=== PATIENT | female | born 1990 | race Caucasian/White ===

== ENCOUNTER 2018-11-18 21:27 | Inpatient (IN) | payer OTHER ==
[2018-11-18 21:39] VITALS: BMI 29.8
--- NOTE | 2018-11-18 21:51 | PDOC ---
History of Present Illness <Simi Calhoun - Last Filed: 11/19/18 00:40> - General History Source: Patient - History of Present Illness Initial Comments: 11/18/18 21:43 28 year old c/o left thigh swelling, redness and pain x 3 days. denies SOB, chest pain. denies trauma / injury. denies recent travel, control PMHX: DVT s/p lovenox at age 15, 11/18/18 21:57 11/19/18 00:00 <Jagruti Williamson - Last Filed: 11/19/18 01:25> - General Chief Complaint: Edema Stated Complaint: LEG PAIN Time Seen by Provider: 11/18/18 21:38 Past History <Simi Calhoun - Last Filed: 11/19/18 00:40> - Suicide/Smoking/Psychosocial Hx Smoking History: Never smoked Hx Alcohol Use: No Drug/Substance Use Hx: Yes (marijuana) <Jagruti Williamson - Last Filed: 11/19/18 01:25> - Past Medical History Allergies/Adverse Reactions: Allergies Allergy/AdvReac Type Severity Reaction Status Date / Time No Known Allergies Allergy Verified 11/19/18 00:11 Home Medications: Ambulatory Orders NK [No Known Home Medication] 11/19/18 Review of Systems - Review of Systems Able to Perform ROS?: Yes Is the patient limited Mauritian proficient: No Constitutional: No: Symptoms Reported, See HPI, Chills, Diaphoresis, Fever, Loss of Appetite, Malaise, Night Sweats, Weakness, Weight Stable, Unintentional Wgt. Loss, Unexplained wgt Loss, Other Respiratory: No: Symptoms reported, See HPI, Cough, Orthopnea, Shortness of Breath, SOB with Exertion, SOB at Rest, Stridor, Wheezing, Productive cough, Hemoptysis, Other Cardiac (ROS): No: Symptoms Reported, See HPI, Chest Pain, Edema, Irregular Heart Rate, Lightheadedness, Palpitations, Syncope, Chest Tightness, Other ABD/GI: No: Symptoms Reported, See HPI, Abdominal Distended, Abd. Pain w/ defecation, Blood Streaked Bowels, Constipated, Diarrhea, Difficulty Swallowing , Nausea, Poor Appetite, Poor Fluid Intake, Rectal Bleeding, Vomiting, Indigestion, Abdominal cramping, Tarry Stools, Other Integumentary: Yes: Erythema <Jagruti Willaimson - Last Filed: 11/19/18 01:25> *Physical Exam - Vital Signs Last Vital Signs Temp Pulse Resp BP Pulse Ox 98.6 F 72 19 101/69 98 11/18/18 21:36 11/18/18 23:47 11/18/18 21:36 11/18/18 23:47 11/18/18 23:47 <Simi Calhoun - Last Filed: 11/19/18 00:40> - Vital Signs Last Vital Signs Temp Pulse Resp BP Pulse Ox 98.6 F 68 19 110/62 99 11/18/18 21:36 11/18/18 21:36 11/18/18 21:36 11/18/18 21:36 11/18/18 21:36 - Physical Exam General Appearance: Yes: Appropriately Dressed Respiratory/Chest: positive: Lungs Clear Cardiovascular: positive: Regular Rhythm, Regular Rate Gastrointestinal/Abdominal: positive: Normal Bowel Sounds, Soft. negative: Tender Extremity: positive: Normal Capillary Refill, Normal Inspection, Normal Range of Motion Integumentary: positive: Other (+ pedal pulse b/l + erythema to left upper thigh. warm to touch. ) Neurologic: positive: Fully Oriented, Alert, Normal Mood/Affect <Jagruti Williamson - Last Filed: 11/19/18 01:25> ED Treatment Course - LABORATORY CBC & Chemistry Diagram: 11/18/18 22:40 11/18/18 22:40 - ADDITIONAL ORDERS Additional order review: Laboratory Results 11/19/18 11/18/18 11/18/18 11:55 22:40 22:40 PT with INR 13.40 H INR 1.13 H PTT (Actin FS) 36.2 Sodium 141 Potassium 3.7 Chloride 106 Carbon Dioxide 28 Anion Gap 7 L BUN 7.8 Creatinine 0.7 Est GFR (CKD-EPI)AfAm 137.62 Est GFR (CKD-EPI)NonAf 118.74 Random Glucose 100 Calcium 9.0 Total Bilirubin 1.2 H AST 14 L ALT 17 Alkaline Phosphatase 95 Troponin I Cancelled Total Protein 7.6 Albumin 3.8 Urine Color Urine Appearance Urine pH Ur Specific [place] Urine Protein Urine Glucose (UA) Urine Ketones Urine Blood Urine Nitrite Urine Bilirubin Urine Urobilinogen Ur Leukocyte Esterase Urine WBC (Auto) Urine RBC (Auto) Urine Casts (Auto) U Epithel Cells (Auto) Urine Bacteria (Auto) Urine HCG, Qual 11/18/18 11/18/18 22:20 22:20 PT with INR INR PTT (Actin FS) Sodium Potassium Chloride Carbon Dioxide Anion Gap BUN Creatinine Est GFR (CKD-EPI)AfAm Est GFR (CKD-EPI)NonAf Random Glucose Calcium Total Bilirubin AST ALT Alkaline Phosphatase Troponin I Total Protein Albumin Urine Color Yellow Urine Appearance Clear Urine pH 5.5 Ur Specific [place] 1.008 L Urine Protein Negative Urine Glucose (UA) Negative Urine Ketones 1+ H Urine Blood Negative Urine Nitrite Negative Urine Bilirubin Negative Urine Urobilinogen 1.0 Ur Leukocyte Esterase Trace Urine WBC (Auto) 8 Urine RBC (Auto) 2 Urine Casts (Auto) 3 U Epithel Cells (Auto) 6.5 Urine Bacteria (Auto) 163.3 Urine HCG, Qual Negative 11/18/18 22:40 RBC 4.79 MCV 86.4 MCHC 33.3 RDW 12.9 MPV 9.8 Neutrophils % 69.1 Lymphocytes % 21.7 Monocytes % 7.1 Eosinophils % 1.1 Basophils % 1.0 <Simi Calhoun - Last Filed: 11/19/18 00:40> - LABORATORY CBC & Chemistry Diagram: 11/18/18 22:40 11/18/18 22:40 <Jagruti Williamson - Last Filed: 11/19/18 01:25> Progress Note - Progress Note Progress Note: A left femorval vein DVT p: US labs EKG admit <Jagruti Williamson - Last Filed: 11/19/18 01:25> Medical Decision Making - Medical Decision Making 11/19/18 01:25 patient to be admitted under Dr. ellison service. patient signed out to Elida Crandall NP <Jagruti Williamson - Last Filed: 11/19/18 01:25> *DC/Admit/Observation/Transfer - Discharge Dispostion Decision to Admit order: Yes <Simi Calhoun - Last Filed: 11/19/18 00:40> - Discharge Dispostion Decision to Admit order: Yes <Jagruti Williamson - Last Filed: 11/19/18 01:25> Diagnosis at time of Disposition: Left femoral vein DVT Qualifiers: Chronicity: acute Qualified Code(s): I82.412 - Acute embolism and thrombosis of left femoral vein - Discharge Dispostion Condition at time of disposition: Guarded
[2018-11-18 23:05] LABS: EPI CELLS 6.5 /HPF (0-5/HPF); HYALINE CASTS 3 /lpf (0-8); PH,URINE 5.5 (5.0-8.0); URINE APPEARANCE CLEAR; URINE BACTERIA 163.3 /hpf (NEGATIVE); URINE BILIRUBIN NEGATIVE (NEGATIVE); URINE COLOR YELLOW; URINE GLUCOSE (UA) NEGATIVE (NEGATIVE); URINE KETONE 1+ (NEGATIVE); URINE LEUK ESTERASE TRACE (NEGATIVE); URINE NITRITE NEGATIVE (NEGATIVE); URINE PROTEIN NEGATIVE (NEGATIVE); URINE RBC 2 /hpf (0-4); URINE WBC 8 /hpf (0-5)
[2018-11-18 23:44] LABS: EOS % 1.1 % (0-4.5); HEMATOCRIT 41.4 % (32.4-45.2); HEMOGLOBIN 13.8 GM/dL (10.7-15.3); LYMPH % 21.7 % (8-40); MCH 28.8 pg (25.7-33.7); MCHC 33.3 g/dl (32.0-36.0); MEAN CELL VOLUME 86.4 fl (80-96); MEAN PLT VOLUME 9.8 fl (7.5-11.1); MONO % 7.1 % (3.8-10.2); NEUT % 69.1 % (42.8-82.8); PLATELET COUNT 242 K/MM3 (134-434); RBC 4.79 M/mm3 (3.60-5.2); RDW 12.9 % (11.6-15.6); WHITE BLOOD COUNT 11.1 K/mm3 (4.0-10.0)
[2018-11-18 23:57] LABS: INR 1.13 (0.83-1.09); PROTHROMBIN TIME (PATIENT) 13.4 SEC (9.7-13.0)
[2018-11-18 23:59] LABS: ACTIVATED PTT 36.2 SECONDS (25.2-36.5)
[2018-11-19] MEDS ORDERED: ENOXAPARIN NA (PORCINE) 80 MG/0.8 ML DISP.SYRIN SQ ONE (00:02)
[2018-11-19 00:17] LABS: ALBUMIN 3.8 g/dl (3.4-5.0); ALK PHOS 95 U/L (45-117); ANION GAP 7 MMOL/L (8-16); BILIRUBIN,TOTAL 1.2 mg/dL (0.2-1); BLOOD UREA NITROGEN 7.8 mg/dL (7-18); CHLORIDE 106 mmol/L (98-107); CO2 28 mmol/L (21-32); CREATININE 0.7 mg/dL (0.55-1.3); GLUCOSE,RANDOM 100 mg/dL (74-106); POTASSIUM 3.7 mmol/L (3.5-5.1); SGOT/AST 14 U/L (15-37); SGPT/ALT 17 U/L (13-61); SODIUM 141 mmol/L (136-145); TOT PROT 7.6 g/dl (6.4-8.2)
--- NOTE | 2018-11-19 00:38 | PN ---
Teaching Attending Note Name of Resident: Alex Calabrese ATTENDING PHYSICIAN STATEMENT I saw and evaluated the patient. I reviewed the resident's note and discussed the case with the resident. I agree with the resident's findings and plan as documented. SUBJECTIVE: OBJECTIVE: HEENT: No Jaundice, eye redness or discharge, PERRLA, EOMI. Normocephalic, atraumatic. External ears are normal and hearing is grossly intact. No nasal discharge. Neck: Supple, nontender. No palpable adenopathy or thyromegaly. No JVD Chest: Good effort. Clear to auscultation and percussion. Heart: Regular. No S3, rub or murmur Abdomen: Not distended, soft, nontender and no HSM. No rebound or guarding. Normal bowel sounds. Ext: Peripheral pulses intact. No leg edema. Skin: Warm and dry. No petechiae, rash or ecchymosis. Neuro: Alert. Oriented x3. CN 2-12 grossly intact. Sensation grossly intact in all four extremities and DTR are symmetric. Psych: Appropriate mood and affect. Good insight. Hypoalbuminemia - Possibly due to combined effects of malnutrition and inflammation associated with comorbid chronic conditions. Will ensure adequate dietary protein intake and also consult body wirer. DM For now, we will hold the home diabetes drugs and implement sliding scale insulin regimen. Provide comprehensive diabetes care with patient teaching and counseling about the importance of adherence to prescribed diabetes regimen, euglycemia, eye care and foot care. Tobacco Use Counseled on risks associated with tobacco use. We will provide patient all the necessary assistance to facilitate smoking cessation and prescribe Nicotine patch. Will consult nephrology and avoid nephrotoxic agents such as NSAIDS, aminoglycosides, contrast dyes and certain Alternative medicine products. Anemia -Do basic anemia work up including serial stool guaiacs, reticulocyte count and iron studies. Would benefit from Procrit therapy once iron replete. Obesity Counseled on the risks associated with obesity. Will provide patient all the necessary assistance, counseling and positive reinforcement to facilitate weight loss. Consult body wirer. Alcohol abuse - Implement [facility] alcohol withdrawal protocol and do neurochecks. Implement seizure, fall and aspiration precautions. Treat with thiamine and folic acid and monitor electrolytes (Ca,Mg,K,P). Counseled patient about abstaining from alcohol. Will consult cash reconciliation specialist and refer to alcohol detox upon discharge. Hypertension - Restart suitable outpatient antihypertensive drugs when clinically appropriate. Revise regimen to ensure [id number] excellent BP control and travel counselor patient on the injurious effects of uncontrolled hypertension. Nonpharmacologic measures to control hypertension like weight loss , salt restriction and exercise discussed. Importance of adherence to treatment regimen and attainment of normotension emphasized. DVT prophylaxis - Lovenox 40 mg SQ q 24 hours. Heparin 5000u sq tid. Advance directives - Full code ASSESSMENT AND PLAN:
--- NOTE | 2018-11-19 01:15 | HP ---
Admitting History and Physical - Primary Care Physician PCP: Facundo Worrell - Admission Chief Complaint: Left Leg Pain History of Present Illness: This is a 28 y/o woman with a PMHx of DVT L- Leg age 15. Who presents to the ED with left groin pain, redness and swelling which radiates to left leg x 3 days. Patient reports she first noted pain to her groin which increased to her left thigh. Patient denies recent travel or taking Control Pills. Patient denies fever, chills, headache, dizziness, SOB, CP, palpitations, AP, N/V/D, constipation, melena, dysuria. History Source: Patient Limitations to Obtaining History: No Limitations - Past Medical History Cardiovascular: Yes: Deep Vein Thrombosis ...LMP: 11/09/18 ...: No Dermatology: Yes: Eczema - Past Surgical History Past Surgical History: Yes: None - Smoking History Smoking history: Never smoked - Alcohol/Substance Use Hx Alcohol Use: No History of Substance Use: reports: Marijuana (Hookah) - Social History Usual Living Arrangement: Yes: With Significant Other ADL: Independent History of Recent Travel: No Home Medications - Allergies Allergies/Adverse Reactions: Allergies Allergy/AdvReac Type Severity Reaction Status Date / Time No Known Allergies Allergy Verified 11/19/18 00:11 - Home Medications Home Medications: Ambulatory Orders NK [No Known Home Medication] 11/19/18 Family Disease History - Family Disease History Family Disease History: Heart Disease: Father (DVTs), Other: Mother (Anemia), Brother (Alive and Healthy) Review of Systems - Review of Systems Constitutional: reports: No Symptoms Eyes: reports: No Symptoms HENT: reports: No Symptoms Neck: reports: No Symptoms Cardiovascular: reports: No Symptoms Respiratory: reports: No Symptoms Gastrointestinal: reports: No Symptoms Genitourinary: reports: No Symptoms Breasts: reports: No Symptoms Reported Musculoskeletal: reports: Extremity Pain, Joint Swelling Integumentary: reports: Eczema, Erythema Neurological: reports: No Symptoms Endocrine: reports: No Symptoms Hematology/Lymphatic: reports: No Symptoms Psychiatric: reports: No Symptoms Pain Intensity: 2 Physical Examination Vital Signs: Vital Signs Temperature 98.6 F 11/18/18 21:36 Pulse Rate 72 11/18/18 23:47 Respiratory Rate 11/18/18 21:36 Blood Pressure 101/69 11/18/18 23:47 O2 Sat by Pulse Oximetry (%) 98 11/18/18 23:47 Constitutional: Yes: Well Nourished, No Distress, Calm Eyes: Yes: WNL, Conjunctiva Clear, EOM Intact HENT: Yes: WNL, Atraumatic, Normocephalic Neck: Yes: WNL, Supple, Trachea Midline Cardiovascular: Yes: WNL, Regular Rate and Rhythm, S1, S2 Respiratory: Yes: WNL, Regular, CTA Bilaterally Gastrointestinal: Yes: WNL, Normal Bowel Sounds, Soft ...Rectal Exam: Yes: WNL Renal/: Yes: WNL Breast(s): Yes: WNL Musculoskeletal: Yes: WNL Extremities: Yes: Erythema (left medial thigh) Edema: No Peripheral Pulses WNL: Yes Integumentary: Yes: Erythema Neurological: Yes: WNL, Alert, Oriented, Cran Nerves II-XII Intact ...Motor Strength: WNL Psychiatric: Yes: WNL, Alert, Oriented Labs: CBC, BMP 11/18/18 22:40 11/18/18 22:40 Laboratory Results - last 24 hr 11/18/18 11/18/18 11/18/18 22:20 22:20 22:40 WBC RBC Hgb Hct MCV MCH MCHC RDW Plt Count MPV Absolute Neuts (auto) Neutrophils % Lymphocytes % Monocytes % Eosinophils % Basophils % Nucleated RBC % PT with INR 13.40 H INR 1.13 H PTT (Actin FS) 36.2 Sodium Potassium Chloride Carbon Dioxide Anion Gap BUN Creatinine Est GFR (CKD-EPI)AfAm Est GFR (CKD-EPI)NonAf Random Glucose Calcium Total Bilirubin AST ALT Alkaline Phosphatase Troponin I Total Protein Albumin Urine Color Yellow Urine Appearance Clear Urine pH 5.5 Ur Specific [place] 1.008 L Urine Protein Negative Urine Glucose (UA) Negative Urine Ketones 1+ H Urine Blood Negative Urine Nitrite Negative Urine Bilirubin Negative Urine Urobilinogen 1.0 Ur Leukocyte Esterase Trace Urine WBC (Auto) 8 Urine RBC (Auto) 2 Urine Casts (Auto) 3 U Epithel Cells (Auto) 6.5 Urine Bacteria (Auto) 163.3 Urine HCG, Qual Negative 11/18/18 11/18/18 11/19/18 22:40 22:40 11:55 WBC 11.1 H RBC 4.79 Hgb 13.8 Hct 41.4 MCV 86.4 MCH 28.8 MCHC 33.3 RDW 12.9 Plt Count 242 MPV 9.8 Absolute Neuts (auto) 7.7 Neutrophils % 69.1 Lymphocytes % 21.7 Monocytes % 7.1 Eosinophils % 1.1 Basophils % 1.0 Nucleated RBC % 0 PT with INR INR PTT (Actin FS) Sodium 141 Potassium 3.7 Chloride 106 Carbon Dioxide 28 Anion Gap 7 L BUN 7.8 Creatinine 0.7 Est GFR (CKD-EPI)AfAm 137.62 Est GFR (CKD-EPI)NonAf 118.74 Random Glucose 100 Calcium 9.0 Total Bilirubin 1.2 H AST 14 L ALT 17 Alkaline Phosphatase 95 Troponin I < 0.02 Cancelled Total Protein 7.6 Albumin 3.8 Urine Color Urine Appearance Urine pH Ur Specific [place] Urine Protein Urine Glucose (UA) Urine Ketones Urine Blood Urine Nitrite Urine Bilirubin Urine Urobilinogen Ur Leukocyte Esterase Urine WBC (Auto) Urine RBC (Auto) Urine Casts (Auto) U Epithel Cells (Auto) Urine Bacteria (Auto) Urine HCG, Qual Intake & Output 11/16/18 11/17/18 11/18/18 11/19/18 23:59 23:59 23:59 23:59 Weight 83.915 kg 77.383 kg Current Medications Generic Name Dose Route Start Last Admin Trade Name Freq PRN Reason Stop Dose Admin Acetaminophen 650 mg 11/19/18 02:04 Tylenol - PO Q6H PRN PAIN OR FEVER Enoxaparin Sodium 80 mg 11/19/18 12:00 Lovenox - SQ Q12H MARITZA Imaging - Results Chest X-ray: Image Reviewed Ultrasound: Report Reviewed, Image Reviewed Problem List - Problems (1) Left femoral vein DVT Assessment/Plan: US- +DVT common femoral vein, greater saphenous vein Lovenox started in ED, will continue BID Appreciate Hematology consult Appreciate Social Work consult- assistance with medication Monitor CBC, BMP, INR Monitor vitals Neurovascular checks Code(s): I82.412 - ACUTE EMBOLISM AND THROMBOSIS OF LEFT FEMORAL VEIN Qualifiers: Chronicity: acute Qualified Code(s): I82.412 - Acute embolism and thrombosis of left femoral vein Assessment/Plan This is a 28 y/o woman with a PMHx of DVT L- Leg age 15. Admitted for DVT of L- Leg for further evaluation of their emergent condition. Plan: See Problem List FEN PO Fluids as tolerated Replete lytes prn Regular Diet DVT ppx OOB Lovenox SQ Code Status: Full Code Dispo: Requires Inpatient Care Visit type - Emergency Visit Emergency Visit: Yes ED Registration Date: 11/18/18 Care time: The patient presented to the Emergency Department on the above date and was hospitalized for further evaluation of their emergent condition. - New Patient This patient is new to me today: Yes Date on this admission: 11/19/18 - Critical Care Critical Care patient: No
[2018-11-19] MEDS ORDERED: ACETAMINOPHEN 325 MG TABLET (FP) PO PRN (02:04)
[2018-11-19 07:53] LABS: BASO % 0.8 % (0-2.0); EOS % 2.4 % (0-4.5); HEMATOCRIT 38.4 % (32.4-45.2); HEMOGLOBIN 13.2 GM/dL (10.7-15.3); MCH 29.4 pg (25.7-33.7); MCHC 34.3 g/dl (32.0-36.0); MEAN CELL VOLUME 85.7 fl (80-96); MEAN PLT VOLUME 10.1 fl (7.5-11.1); MONO % 8.9 % (3.8-10.2); NEUT % 53.9 % (42.8-82.8); PLATELET COUNT 226 K/MM3 (134-434); RBC 4.48 M/mm3 (3.60-5.2); RDW 12.8 % (11.6-15.6); WHITE BLOOD COUNT 9.1 K/mm3 (4.0-10.0)
[2018-11-19 08:02] LABS: CALCIUM 8.6 mg/dL (8.5-10.1); CREATININE 0.7 mg/dL (0.55-1.3); POTASSIUM 3.7 mmol/L (3.5-5.1)
--- NOTE | 2018-11-19 11:05 | PN ---
Progress Note, Physician Chief Complaint: AWAKE ALERT NAD EVENTS REVIEWED - Current Medication List Current Medications: Active Medications Acetaminophen (Tylenol -) 650 mg PO Q6H PRN PRN Reason: PAIN OR FEVER Enoxaparin Sodium (Lovenox -) 80 mg SQ Q12H MARITZA - Objective Vital Signs: Vital Signs Temperature 98.0 F 11/19/18 06:00 Pulse Rate 73 11/19/18 06:00 Respiratory Rate 18 11/19/18 06:00 Blood Pressure 111/69 11/19/18 06:00 O2 Sat by Pulse Oximetry (%) 97 11/19/18 02:53 Constitutional: Yes: No Distress Cardiovascular: Yes: Regular Rate and Rhythm Respiratory: Yes: WNL Genitourinary: Yes: WNL Musculoskeletal: Yes: WNL Peripheral Pulses WNL: Yes Integumentary: Yes: Erythema (LEFT LEG), Rash Neurological: Yes: WNL ...Motor Strength: LLE Psychiatric: Yes: Other Labs: CBC, BMP 11/19/18 07:15 11/19/18 07:15 INR, PTT INR 1.13 (0.83-1.09) H 11/18/18 22:40 Problem List - Problems (1) Left femoral vein DVT Code(s): I82.412 - ACUTE EMBOLISM AND THROMBOSIS OF LEFT FEMORAL VEIN Qualifiers: Chronicity: acute Qualified Code(s): I82.412 - Acute embolism and thrombosis of left femoral vein Assessment/Plan HEME W/UP LOVENOX BID CHANGE TO ELIQUIS SMOKING CESSATION NO ORAL CONTRACEPTIVES D/W PATIENT AND HER DAD
[2018-11-19] MEDS ORDERED: ENOXAPARIN NA (PORCINE) 80 MG/0.8 ML DISP.SYRIN SQ SCH (12:00)
--- NOTE | 2018-11-19 18:46 | CONSULT ---
Consult Consult Specialty:: Hematology and Medical Oncology Reason for Consultation:: Left Femoral DVT - History of Present Illness Chief Complaint: Left Leg Swelling and Pain History of Present Illness: 28 y/o lady admitted for left groin pain, redness and swelling for 3 days. Denied control pills use. Notably, has a past medical history of Left leg DVT. - History Source History Provided By: Patient Limitations to Obtaining History: No Limitations - Past Medical History Cardio/Vascular: Yes: Deep Vein Thrombosis ...LMP: 11/09/18 ...: No Dermatology: Yes: Eczema - Past Surgical History Past Surgical History: Yes: None - Alcohol/Substance Use Hx Alcohol Use: No History of Substance Use: reports: Marijuana (Hookah) - Smoking History Smoking history: Never smoked - Social History ADL: Independent History of Recent Travel: No Home Medications - Allergies Allergies/Adverse Reactions: Allergies Allergy/AdvReac Type Severity Reaction Status Date / Time No Known Allergies Allergy Verified 11/19/18 00:11 - Home Medications Home Medications: Ambulatory Orders NK [No Known Home Medication] 11/19/18 Family Disease History - Family Disease History Family Disease History: Heart Disease: Father (DVTs), Other: Mother (Anemia), Brother (Alive and Healthy) Review of Systems - Review of Systems Constitutional: reports: No Symptoms Eyes: reports: No Symptoms HENT: reports: No Symptoms Neck: reports: No Symptoms Cardiovascular: reports: No Symptoms Respiratory: reports: No Symptoms Gastrointestinal: reports: No Symptoms Genitourinary: reports: No Symptoms Breasts: reports: No Symptoms Reported Musculoskeletal: reports: No Symptoms, Extremity Pain Integumentary: reports: No Symptoms, Eczema, Erythema Hematology/Lymphatic: reports: Other Psychiatric: reports: No Symptoms Physical Exam Vital Signs: Vital Signs Temperature 98.7 F 11/19/18 14:08 Pulse Rate 81 11/19/18 14:08 Respiratory Rate 18 11/19/18 14:08 Blood Pressure 113/88 11/19/18 14:08 O2 Sat by Pulse Oximetry (%) 99 11/19/18 09:00 Constitutional: Yes: Well Nourished Eyes: Yes: WNL HENT: Yes: WNL Neck: Yes: WNL Cardiovascular: Yes: WNL Respiratory: Yes: WNL Gastrointestinal: Yes: WNL Renal/: Yes: WNL Extremities: Yes: Erythema, Other (Left Inguinal Fullness, midline small induration) Integumentary: Yes: Body Piercing, Bruising, Erythema Labs: CBC, BMP 11/19/18 07:15 11/19/18 07:15 Assessment/Plan 28 y/o lady presenting with Left Inguinal/Femoral pain, swelling and erythema. She mentions that notices bruising in the same leg when she stands up for a while. Notably, she has been diagnosed with Left leg DVT at age 15. Plan: 1) Left Extremity DVT (Proximal DVT): Will need to rule out May-Thurner syndrome (compression of iliocaval venous system by the arterial system). Please obtain CT venogram or MR venography of the Ilocaval system and Left Lower extremity. Discuss with Radiology which study they recommend in this patient. CT abdomen and Pelvis. 2) R/O Coagulopathy. Given acute thrombus tests will not be accurate (except genetic testing). Recommend to follow-up with Dr. Rao or Dr. Thomas upon discharge for outpatient evaluation. 3) Anticoagulation. 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 If direct anticoagulant therapy preferred recommend Apixaban (Eliquis) 10 mg po BID for 7 days and 5 mg po BID prison until outpatient evaluation. 4) Thank you very much for this consultation
[2018-11-19] MEDS: APIXABAN 5 MG TABLET PO SCH (21:02)
[2018-11-19] MEDS ORDERED: APIXABAN 5 MG TABLET PO SCH (22:00)
[2018-11-20] MEDS: APIXABAN 5 MG TABLET PO SCH ×2 (09:45→22:49)
--- NOTE | 2018-11-20 11:33 | PN ---
Progress Note, Physician Chief Complaint: ASLEEP, DENIES CP OR SOB NO FEVERS - Current Medication List Current Medications: Active Medications Acetaminophen (Tylenol -) 650 mg PO Q6H PRN PRN Reason: PAIN OR FEVER Apixaban (Eliquis -) 10 mg PO BID MARITZA Stop: 11/26/18 10:01 Last Admin: 11/20/18 09:45 Dose: 10 mg - Objective Vital Signs: Vital Signs Temperature 98.2 F 11/20/18 06:15 Pulse Rate 70 11/20/18 06:15 Respiratory Rate 18 11/20/18 06:15 Blood Pressure 92/48 L 11/20/18 06:15 O2 Sat by Pulse Oximetry (%) 99 11/19/18 21:00 Constitutional: Yes: No Distress Cardiovascular: Yes: Regular Rate and Rhythm Respiratory: Yes: WNL Gastrointestinal: Yes: WNL Genitourinary: Yes: WNL Musculoskeletal: Yes: WNL Extremities: Yes: Other (LEFT LEG EDEMA/SWELLING UPPER GROIN, ERYTHEMA) Integumentary: Yes: Erythema Wound/Incision: Yes: Clean/Dry Neurological: Yes: WNL ...Motor Strength: WNL Psychiatric: Yes: WNL Labs: CBC, BMP 11/19/18 07:15 11/19/18 07:15 INR, PTT INR 1.13 (0.83-1.09) H 11/18/18 22:40 Problem List - Problems (1) Left femoral vein DVT Code(s): I82.412 - ACUTE EMBOLISM AND THROMBOSIS OF LEFT FEMORAL VEIN Qualifiers: Chronicity: acute Qualified Code(s): I82.412 - Acute embolism and thrombosis of left femoral vein Assessment/Plan CT ABDOMEN/PELVIS VENOGRAM LEFT ILIAC VEIN R/O VEIN COLLAPSE R/O NEOPLASM ABD/PELVIS ELIQUIS BID SMOKING CESSATION
--- NOTE | 2018-11-20 11:37 | EKG ---
Test Reason : Blood Pressure : / mmHG Vent. Rate : 064 BPM Atrial Rate : 064 BPM P-R Int : 160 ms QRS Dur : 094 ms QT Int : 416 ms P-R-T Axes : 049 017 023 degrees QTc Int : 429 ms SINUS RHYTHM WITH MARKED SINUS ARRHYTHMIA OTHERWISE NORMAL ECG NO PREVIOUS ECGS AVAILABLE Confirmed by NEFTALY MCCARTHY, SHERLYN ([id number]) on 11/20/2018 11:37:00 AM Referred By: Confirmed By:SHERLYN HIGGINBOTHAM MD
[2018-11-21] MEDS: APIXABAN 5 MG TABLET PO SCH ×2 (09:44→21:55)
--- NOTE | 2018-11-21 10:56 | PN ---
Progress Note, Physician Chief Complaint: DVT History of Present Illness: Previous notes and events reviewed awake and alert NAD pain to left groin described as sore, sts its getting better - Current Medication List Current Medications: Active Medications Acetaminophen (Tylenol -) 650 mg PO Q6H PRN PRN Reason: PAIN OR FEVER Apixaban (Eliquis -) 10 mg PO BID [facility] Stop: 11/26/18 10:01 Last Admin: 11/21/18 09:44 Dose: 10 mg - Objective Vital Signs: Vital Signs Temperature 98.5 F 11/21/18 09:47 Pulse Rate 73 11/21/18 09:47 Respiratory Rate 18 11/21/18 09:47 Blood Pressure 102/59 L 11/21/18 09:47 O2 Sat by Pulse Oximetry (%) 100 11/20/18 21:00 Constitutional: Yes: No Distress, Calm Eyes: Yes: Conjunctiva Clear HENT: Yes: Atraumatic Cardiovascular: Yes: Regular Rate and Rhythm Respiratory: Yes: Regular, CTA Bilaterally Gastrointestinal: Yes: Normal Bowel Sounds, Soft Breast(s): Yes: WNL Musculoskeletal: Yes: WNL Extremities: Yes: WNL Edema: Yes (left groin) Neurological: Yes: Alert, Oriented Psychiatric: Yes: Alert, Oriented Labs: CBC, BMP 11/19/18 07:15 11/19/18 07:15 INR, PTT INR 1.13 (0.83-1.09) H 11/18/18 22:40 - ....Imaging Cat Scan: Report Reviewed Problem List - Problems (1) Abnormal CT scan Assessment/Plan: -Abdomen CT scan shows small gallstones vs calcifications with mild wall thickening, nondistention of the distal descending and sigmoid colon, cannot rule out wall thickening -GI consult Code(s): R93.89 - ABNORMAL FINDINGS ON DX IMAGING OF OTH BODY STRUCTURES (2) Left femoral vein DVT Assessment/Plan: -Hematology and Vascular consult -LLE Vascular US shows left leg DVT, specifically thrombus noted within common femoral vein and also within greater saphenous vein -Abd/Pelvic CT scan shows mild stranding in the left groin around the left common femoral vein, slightly hyperdense tortuous tiny superficial vessel noted in lower anterior pelvis wall left more than right -pending LLE venogram -Eliquis 10mg BID for 7 days (14 doses) then will decrease to 5mg BID until outpatient follow up with heme Code(s): I82.412 - ACUTE EMBOLISM AND THROMBOSIS OF LEFT FEMORAL VEIN Qualifiers: Chronicity: acute Qualified Code(s): I82.412 - Acute embolism and thrombosis of left femoral vein Assessment/Plan see problem list
--- NOTE | 2018-11-21 11:10 | CONSULT ---
- Consultation VASCULAR SURGERY CONSULT Patient seen and evaluated with Dr. Hayes Santos. Called to eval 28 yo female with LLE DVT (CFV & Saphenous). She has a positive h /o DVT in same extremity when she was 15 years old. Currently resting comfortably in position of comfort. Denies n/v/f/c, CP, SOB, FREEDMAN or hemoptysis. Denies any trauma. Only smokes marijuana (denies cigarettes) . Denies taking control. Last Vital Signs Temp Pulse Resp BP Pulse Ox 98.5 F 73 18 102/59 L 100 11/21/18 09:47 11/21/18 09:47 11/21/18 09:47 11/21/18 09:47 11/20/18 21:00 CBC, BMP 11/19/18 07:15 11/19/18 07:15 INR, PTT INR 1.13 (0.83-1.09) H 11/18/18 22:[address] Acuña's plan 1) LLE DVT (Proximal DVT): Will need to rule out May-Thurner syndrome ( compression of iliocaval venous system by the arterial system). --> Recommend MRV (Ilocaval system and Left Lower extremity). 2) R/O Coagulopathy. Given acute thrombus tests will not be accurate (except genetic testing). Recommend to follow-up with Dr. Rao or Dr. Thomas upon DC for out-patient eval 3) AC: Given that this her second unprovoked event of DVT, she is a candidate for nursing home AC (or as per outpatient consultation). 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 Above discussed with my attending and agrees. On behalf of Dr. Santos, thank you for the opportunity to participate in your patient's care. Problem List - Problems (1) Left femoral vein DVT Code(s): I82.412 - ACUTE EMBOLISM AND THROMBOSIS OF LEFT FEMORAL VEIN Qualifiers: Chronicity: acute Qualified Code(s): I82.412 - Acute embolism and thrombosis of left femoral vein Visit type - Case Type Case Type: ED Admission - Emergency Emergency Visit: Yes ED Registration Date: 11/19/18 Care time: The patient presented to the Emergency Department on the above date and was hospitalized for further evaluation of their emergent condition. - New patient This patient is new to me today: Yes Date on this admission: 11/21/18
--- NOTE | 2018-11-21 20:14 | CON.GI ---
Consult Consult Specialty:: Gastroenterology Referred by:: Elina Hensley NP Reason for Consultation:: GB calcifications - History of Present Illness Chief Complaint: Painful bumps in my left groin History of Present Illness: 28F presents with painful peanut sized masses in the left inguinal regions. She is found to have a left common femoral and greater saphenous vein thromboses on Duplex scan. CT scan reveals some GB calfications and GB and sigmoid wall thickening. Kiley has had episodes of epigastric pain radiating to the right scapula after eating hot wings. These also cause heartburn and acid reflux. The pain is associated with nausea and sometimes vomiting. She gets intermittent transient diarrhea. No constipation, melena or overt bleeding.. Her appetite is great and her weight is steady. She did have LLE DVT at age 15 that was attributed to a long car rides while moving up from [place]. No other thromboses since then. She had a 2 hour car rides to and from [place] 2 weeks ago. No trauma. No BCP usage. Her father also had a DVT but it was related to LLE trauma. No FH of gallbladder disease. She did pass a right kidney stone about a year ago. She has never been . She has never had any endoscopies. - History Source History Provided By: Patient Limitations to Obtaining History: No Limitations - Past Medical History Cardio/Vascular: Yes: Deep Vein Thrombosis Gastrointestinal: Yes: GERD Renal/: Yes: Renal Calculi ...LMP: 11/09/18 ...: No Dermatology: Yes: Eczema - Past Surgical History Past Surgical History: Yes: None - Alcohol/Substance Use Hx Alcohol Use: No History of Substance Use: reports: Marijuana (Hookah) - Smoking History Smoking history: Never smoked - Social History Usual Living Arrangement: With Significant Other (girlfriend) ADL: Independent Occupation: cook at [employer] Place of : [facility] History of Recent Travel: No Home Medications - Allergies Allergies/Adverse Reactions: Allergies Allergy/AdvReac Type Severity Reaction Status Date / Time No Known Allergies Allergy Verified 11/19/18 00:11 - Home Medications Home Medications: Ambulatory Orders NK [No Known Home Medication] 11/19/18 Family Disease History - Family Disease History Family Disease History: Heart Disease: Father (DVTs), Other: Mother (Anemia), Brother (Alive and Healthy) Review of Systems - Review of Systems Constitutional: reports: No Symptoms Eyes: reports: No Symptoms HENT: reports: No Symptoms Neck: reports: No Symptoms Cardiovascular: reports: No Symptoms Respiratory: reports: No Symptoms Gastrointestinal: reports: No Symptoms Genitourinary: reports: No Symptoms Musculoskeletal: reports: Extremity Pain (left inguinal area pain) Neurological: reports: No Symptoms Endocrine: reports: No Symptoms Hematology/Lymphatic: reports: No Symptoms Physical Exam-GI Vital Signs: Vital Signs Temperature 98.3 F 11/21/18 17:10 Pulse Rate 62 11/21/18 17:10 Respiratory Rate 20 11/21/18 17:10 Blood Pressure 122/62 11/21/18 17:10 O2 Sat by Pulse Oximetry (%) 100 11/21/18 09:00 CBC,CMP WBC 9.1 K/mm3 (4.0-10.0) 11/19/18 07:15 RBC 4.48 M/mm3 (3.60-5.2) 11/19/18 07:15 Hgb 13.2 GM/dL (10.7-15.3) 11/19/18 07:15 Hct 38.4 % (32.4-45.2) 11/19/18 07:15 MCV 85.7 fl (80-96) 11/19/18 07:15 MCH 29.4 pg (25.7-33.7) 11/19/18 07:15 MCHC 34.3 g/dl (32.0-36.0) 11/19/18 07:15 RDW 12.8 % (11.6-15.6) 11/19/18 07:15 Plt Count 226 K/MM3 (134-434) 11/19/18 07:15 MPV 10.1 fl (7.5-11.1) 11/19/18 07:15 Absolute Neuts (auto) 4.9 K/mm3 (1.5-8.0) 11/19/18 07:15 Neutrophils % 53.9 % (42.8-82.8) D 11/19/18 07:15 Lymphocytes % 34.0 % (8-40) D 11/19/18 07:15 Monocytes % 8.9 % (3.8-10.2) 11/19/18 07:15 Eosinophils % 2.4 % (0-4.5) D 11/19/18 07:15 Basophils % 0.8 % (0-2.0) 11/19/18 07:15 Nucleated RBC % 0 % (0-0) 11/19/18 07:15 Sodium 144 mmol/L (136-145) 11/19/18 07:15 Potassium 3.7 mmol/L (3.5-5.1) 11/19/18 07:15 Chloride 109 mmol/L (98-107) H 11/19/18 07:15 Carbon Dioxide 29 mmol/L (21-32) 11/19/18 07:15 Anion Gap 6 MMOL/L (8-16) L 11/19/18 07:15 BUN 10.0 mg/dL (7-18) 11/19/18 07:15 Creatinine 0.7 mg/dL (0.55-1.3) 11/19/18 07:15 Est GFR (CKD-EPI)AfAm 137.62 11/19/18 07:15 Est GFR (CKD-EPI)NonAf 118.74 11/19/18 07:15 Random Glucose 89 mg/dL (74-106) 11/19/18 07:15 Calcium 8.6 mg/dL (8.5-10.1) 11/19/18 07:15 Total Bilirubin 1.2 mg/dL (0.2-1) H 11/18/18 22:40 AST 14 U/L (15-37) L 11/18/18 22:40 ALT 17 U/L (13-61) 11/18/18 22:40 Alkaline Phosphatase 95 U/L (45-117) 11/18/18 22:40 Troponin I Cancelled 11/19/18 11:55 Total Protein 7.6 g/dl (6.4-8.2) 11/18/18 22:40 Albumin 3.8 g/dl (3.4-5.0) 11/18/18 22:40 Current Medications Generic Name Dose Route Start Last Admin Trade Name Freq PRN Reason Stop Dose Admin Acetaminophen 650 mg 11/19/18 02:04 Tylenol - PO Q6H PRN PAIN OR FEVER Apixaban 10 mg 11/19/18 22:00 11/21/18 09:44 Eliquis - PO 11/26/18 10:01 10 mg BID MARITZA Administration Constitutional: Yes: No Distress Eyes: Yes: Conjunctiva Clear HENT: Yes: Atraumatic Neck: Yes: Supple Cardiovascular: Yes: Regular Rate and Rhythm Respiratory: Yes: CTA Bilaterally Gastrointestinal Inspection: Yes: WNL ...Auscultate: Yes: Normoactive Bowel Sounds ...Palpate: Yes: Soft, Other (nontender left inguinal chain, no appreciable nodes) ...Rectal Exam: Yes: Deferred (declined) Edema: No Integumentary: Yes: Tattoos Neurological: Yes: Alert, Oriented Labs: CBC, BMP 11/19/18 07:15 11/19/18 07:15 INR, PTT INR 1.13 (0.83-1.09) H 11/18/18 22:40 Imaging - Results Cat Scan: Report Reviewed ( Final Report CT ABDOMEN & PELVIS CT W/O CONTR Show Printer-Friendly Version with Image (1 of 1) Show Printer- Friendly Version without images Patient Name: Kiley Levin : 1989 ID: [id number] Study Date: 20-Nov-2018 14:43 [facility] Name : [facility] DEPARTMENT OF RADIOLOGY Phys: Facundo Worrell MD : 1989 Age: 28 Sex: F [facility] Acct: [id number] Loc: [address] Exam Date: 11/20/18 Status: [place] [address] Unit Number: [id number] EXAM#: TYPE/EXAM: RESULT: [id number] CT/ABDOMEN PELVIS CT W/O CONTR History of new DVT. Rule out neoplasm CT scan of the abdomen pelvis following oral contrast administration only Coronal and sagittal reformatted images were obtained. No prior is available for comparison. Included lower lung appears unremarkable and the heart is within normal limits in size. Partially distended stomach without wall thickening. Evaluation of the liver and spleen appear unremarkable. Gallbladder is partially distended with small calcific densities likely representing small stones. Cannot rule out wall calcification. There is suggestion of mild wall thickening without evidence of pericholecystic free fluid. The pancreas and both adrenal glands appear unremarkable. Both kidneys appear unremarkable. There is no evidence of small bowel obstruction. Normal-appearing terminal ileum and appendix. Normal amount of stool in the colon. There is nondistention of the distal descending and sigmoid colon. Cannot rule out wall thickening. No surrounding inflammatory changes are identified. No free air, free fluid or enlarged mesenteric lymph nodes are present. Normal size abdominal aorta down through its bifurcation. Partially distended urinary bladder without wall thickening. Normal size retroverted uterus. Left ovary is prominent relative to the right. There is a small amount of free fluid in the cul-de-sac, likely physiologic Note is is made of mild stranding around the left common femoral vein. No case of left common femoral vein thrombosis of from prior duplex ultrasound dated 2018. Slightly tortuous superficial/subcutaneous hyperdense vessels are noted in the lower anterior pelvic wall, mainly on the left. Cannot rule out thrombosed vessels since no intravenous contrast was administered. A left groin slightly lobulated nodular density is present measuring 1.6 x 1.3 cm likely representing a lymph node. Visualized osseous structures appear intact. Impression: Small gallstones versus wall calcifications with mild wall thickening for which further evaluation with gallbladder ultrasound is needed. Nondistention of the distal descending and sigmoid colon. Cannot rule out wall thickening. Correlate clinically for further evaluation. Slightly prominent left ovary relative to the right. Normal size retroverted uterus with a small amount of free fluid in the cul-de-sac, likely physiologic. There is mild stranding in the left groin around the left common femoral vein. Patient is a known case of left common femoral vein thrombosis from prior DVT study dated 11/18/2018. Slightly hyperdense tortuous tiny superficial vessels are noted in the lower anterior pelvis wall, left more the right. Cannot rule out some thrombosed superficial vessels. Reported By: Demond Whaley MD 11/20/18 160 Technologist: Thuan Beltre Transcribed Date/Time: 11/20/18 1601 Game Attendant: Demond Whaley Printed Date/Time: By: Signed by: Demond Whaley Signed on: 20-Nov-2018 16:03) Problem List - Problems (1) Gallbladder calculus Code(s): K80.20 - CALCULUS OF GALLBLADDER W/O CHOLECYSTITIS W/O OBSTRUCTION (2) Calcification of gallbladder Code(s): K82.8 - OTHER SPECIFIED DISEASES OF GALLBLADDER (3) Nephrolithiasis Code(s): N20.0 - CALCULUS OF KIDNEY (4) Acid reflux Code(s): K21.9 - GASTRO-ESOPHAGEAL REFLUX DISEASE WITHOUT ESOPHAGITIS Assessment/Plan Assessment: - Given that the calcification is found in dependent portions of the gallbladder and spotty they are likely due to gallstones rather than a porcelain gallbladder but a GB sonogram will be obtained to confirm . Her symptoms are consistent with biliary colic - Given the lack of GI symptoms and anemia the sigmoid abnormality seems to reflect underdistension but still for occult blood will be ordered Plan: -- GB sonogram to confirm stones. Advised her to come to ER for Hida scan if she gets biliary colic -- Stool for occult blood -- Eliquis already started as search for a vascular anomaly is awaited -- Coag consultation is pending
[2018-11-22 07:42] LABS: HEMATOCRIT 41.7 % (32.4-45.2); HEMOGLOBIN 14.3 GM/dL (10.7-15.3); MCH 29.4 pg (25.7-33.7); MCHC 34.2 g/dl (32.0-36.0); MEAN CELL VOLUME 86.1 fl (80-96); PLATELET COUNT 252 K/MM3 (134-434); RBC 4.85 M/mm3 (3.60-5.2); RDW 12.7 % (11.6-15.6); WHITE BLOOD COUNT 8.9 K/mm3 (4.0-10.0)
[2018-11-22 08:14] LABS: ALBUMIN 3.5 g/dl (3.4-5.0); BILIRUBIN,TOTAL 1.7 mg/dL (0.2-1); BLOOD UREA NITROGEN 10.4 mg/dL (7-18); CALCIUM 9.3 mg/dL (8.5-10.1); CREATININE 0.6 mg/dL (0.55-1.3); POTASSIUM 4.3 mmol/L (3.5-5.1); TOT PROT 7.4 g/dl (6.4-8.2)
[2018-11-22] MEDS: PANTOPRAZOLE 40 MG TABLET (FP) PO SCH (11:00)
[2018-11-22] MEDS: APIXABAN 5 MG TABLET PO SCH ×2 (11:00→22:00)
--- NOTE | 2018-11-22 13:34 | PN ---
Progress Note, Physician Chief Complaint: DVT History of Present Illness: Previous notes and events reviewed awake and alert NAD continue with sore pain to left groin denies any signs of bleeding - Current Medication List Current Medications: Active Medications Acetaminophen (Tylenol -) 650 mg PO Q6H PRN PRN Reason: PAIN OR FEVER Apixaban (Eliquis -) 10 mg PO BID [facility] Stop: 11/26/18 10:01 Last Admin: 11/22/18 11:00 Dose: 10 mg Pantoprazole Sodium (Protonix -) 40 mg PO DAILY [facility] Last Admin: 11/22/18 11:00 Dose: 40 mg - Objective Vital Signs: Vital Signs Temperature 97.5 F L 11/22/18 06:09 Pulse Rate 68 11/22/18 06:09 Respiratory Rate 18 11/22/18 06:09 Blood Pressure 93/47 L 11/22/18 06:09 O2 Sat by Pulse Oximetry (%) 100 11/21/18 21:00 Constitutional: Yes: No Distress, Calm Eyes: Yes: Conjunctiva Clear HENT: Yes: Atraumatic Cardiovascular: Yes: Regular Rate and Rhythm Respiratory: Yes: Regular, CTA Bilaterally Gastrointestinal: Yes: Normal Bowel Sounds, Soft Musculoskeletal: Yes: WNL Extremities: Yes: Other (edema left inner thigh/groin) Edema: No Neurological: Yes: Alert, Oriented Psychiatric: Yes: Alert, Oriented Labs: CBC, BMP 11/22/18 06:41 11/22/18 06:41 INR, PTT INR 1.13 (0.83-1.09) H 11/18/18 22:40 - ....Imaging Ultrasound: Report Reviewed Problem List - Problems (1) Abnormal CT scan Assessment/Plan: -Abdomen CT scan shows small gallstones vs calcifications with mild wall thickening, nondistention of the distal descending and sigmoid colon, cannot rule out wall thickening -GI on board -Abdominal US shows 1.6cm gallstone in the gallbladder neck with a contracted gallbladder demonstrating wall thickening however no pericholecystic fluid or sonographic Wright's sign, findings could be a sequela of chronic choelcystitis Code(s): R93.89 - ABNORMAL FINDINGS ON DX IMAGING OF OTH BODY STRUCTURES (2) Left femoral vein DVT Assessment/Plan: -Hematology and Vascular on board -LLE Vascular US shows left leg DVT, specifically thrombus noted within common femoral vein and also within greater saphenous vein -Abd/Pelvic CT scan shows mild stranding in the left groin around the left common femoral vein, slightly hyperdense tortuous tiny superficial vessel noted in lower anterior pelvis wall left more than right -pending LLE venogram -Eliquis 10mg BID for 7 days (14 doses) then will decrease to 5mg BID until outpatient follow up with [facility] Code(s): I82.412 - ACUTE EMBOLISM AND THROMBOSIS OF LEFT FEMORAL VEIN Qualifiers: Chronicity: acute Qualified Code(s): I82.412 - Acute embolism and thrombosis of left femoral vein Assessment/Plan see problem list
--- NOTE | 2018-11-22 18:11 | PN.GI ---
GI Progress Note Subjective: GI NOte: Sonogram confirms a gallstone and excludes a porcelain gallbladder. I have advised her to the proceed to the ER during her next attack of biliary colic to get the GB removed before she develops biliary pancreatitis or ascending cholangitis. Her acid reflux is being controlled by the PPI. - Objective Vital Signs: Vital Signs Temperature 98.2 F 11/22/18 14:36 Pulse Rate 71 11/22/18 14:36 Respiratory Rate 18 11/22/18 14:36 Blood Pressure 98/64 11/22/18 14:36 O2 Sat by Pulse Oximetry (%) 100 11/21/18 21:00 Laboratory Tests 11/22/18 06:41 Total Bilirubin 1.7 H AST 12 L ALT 17 Alkaline Phosphatase 82 Constitutional: No Distress ...Auscultate: Yes: Normoactive Bowel Sounds ...Palpate: Yes: Soft, Other (nontender) Labs: CBC, BMP 11/22/18 06:41 11/22/18 06:41 INR, PTT INR 1.13 (0.83-1.09) H 11/18/18 22:40 Assessment/Plan Assessment: - Sonogram confirms a gallstone and exludes a porcelain GB - Given the lack of GI symptoms and anemia the sigmoid abnormality seems to reflect underdistension but still for occult blood will be ordered Plan: -- Advised to come to ER for Hida scan if she gets biliary colic -- Stool for occult blood pending -- Eliquis already started as search for a vascular anomaly is awaited -- Coag consultation is pending Problem List - Problems (1) Gallbladder calculus Assessment/Plan: Confirmed by sonogram. Not symptomatic at present Code(s): K80.20 - CALCULUS OF GALLBLADDER W/O CHOLECYSTITIS W/O OBSTRUCTION (2) Calcification of gallbladder Assessment/Plan: has been excluded Code(s): K82.8 - OTHER SPECIFIED DISEASES OF GALLBLADDER (3) Nephrolithiasis Code(s): N20.0 - CALCULUS OF KIDNEY (4) Acid reflux Code(s): K21.9 - GASTRO-ESOPHAGEAL REFLUX DISEASE WITHOUT ESOPHAGITIS
--- NOTE | 2018-11-22 19:14 | PN ---
Progress Note (short form) - Note Progress Note: Patient seen and examined No chest pain, SOB Some discomfort left inguinal area Last Vital Signs Temp Pulse Resp BP Pulse Ox 98.8 F 66 18 99/61 100 11/22/18 18:26 11/22/18 18:26 11/22/18 18:26 11/22/18 18:26 11/21/18 21:00 Lungs- clear Cor-RSR Abd-soft minimal tenderness left inguinal area CBC, BMP 11/22/18 06:41 11/22/18 06:41 Current Medications Generic Name Dose Route Start Last Admin Trade Name Freq PRN Reason Stop Dose Admin Acetaminophen 650 mg 11/19/18 02:04 Tylenol - PO Q6H PRN PAIN OR FEVER Apixaban 10 mg 11/19/18 22:00 11/22/18 11:00 Eliquis - PO 11/26/18 10:01 10 mg BID MARITZA Administration Pantoprazole Sodium 40 mg 11/22/18 10:00 11/22/18 11:00 Protonix - PO 40 mg DAILY MARITZA Administration Impression: DVT-for evaluation for May- Thurner syndrome For outpatient thrombophilia workup Continue remote computer terminal operator a/c.
[2018-11-23 07:45] LABS: HEMATOCRIT 42.7 % (32.4-45.2); HEMOGLOBIN 14.7 GM/dL (10.7-15.3); MCH 29.5 pg (25.7-33.7); MCHC 34.5 g/dl (32.0-36.0); MEAN CELL VOLUME 85.5 fl (80-96); PLATELET COUNT 257 K/MM3 (134-434); RBC 4.99 M/mm3 (3.60-5.2); RDW 12.6 % (11.6-15.6); WHITE BLOOD COUNT 9.6 K/mm3 (4.0-10.0)
[2018-11-23 08:43] LABS: ALBUMIN 3.6 g/dl (3.4-5.0); BLOOD UREA NITROGEN 13.2 mg/dL (7-18); CALCIUM 9.2 mg/dL (8.5-10.1); CREATININE 0.8 mg/dL (0.55-1.3); POTASSIUM 4.8 mmol/L (3.5-5.1); TOT PROT 7.5 g/dl (6.4-8.2)
[2018-11-23] MEDS: APIXABAN 5 MG TABLET PO SCH (09:12)
[2018-11-23] MEDS: PANTOPRAZOLE 40 MG TABLET (FP) PO SCH (09:12)
--- NOTE | 2018-11-23 09:17 | DS ---
Physical Examination Vital Signs: Vital Signs Temperature 97.5 F L 11/23/18 06:11 Pulse Rate 62 11/23/18 06:11 Respiratory Rate 28 H 11/23/18 03:00 Blood Pressure 100/58 L 11/23/18 06:11 O2 Sat by Pulse Oximetry (%) 100 11/22/18 21:00 AWAKE ALERT Findings/Remarks: AWAKE ALERT DENIES FEVER OR CHILLS TOLERATING MEALS NO PAIN Constitutional: Yes: No Distress Cardiovascular: Yes: Regular Rate and Rhythm Respiratory: Yes: WNL Gastrointestinal: Yes: WNL Musculoskeletal: Yes: WNL Extremities: Yes: Other Integumentary: Yes: Erythema Neurological: Yes: WNL ...Motor Strength: WNL Psychiatric: Yes: WNL Labs: CBC, BMP 11/23/18 07:00 11/23/18 07:00 Discharge Summary Reason For Visit: DEEP VEIN THROMBOSIS (DVT) OF FEMORAL VEIN LEFT Current Active Problems Abnormal CT scan (Acute) Acid reflux (Acute) Calcification of gallbladder (Acute) Gallbladder calculus (Acute) Left femoral vein DVT (Acute) Nephrolithiasis (Acute) Procedures: Principal: CT SCANS/SONO Hospital Course: ADMITTED NEW LLE DVT, CHOLITHISIS, TREATED WITH AC AND TO F/U OUTPATIENT FOR CHOLITHIASIS Condition: Guarded - Instructions Diet, Activity, Other Instructions: SEE YOUR DOCTOR IN 1-2 DAYS FOR F/U ELIQUIS 10MG AM/PM FOR 5 DAYS THEN 5MG AM/PM FOR 6 MONTHS MIN. SEE HEMATOLOGY FOR F/U IN 2-[address] TAYLOR Disposition: HOME - Home Medications Comprehensive Discharge Medication List: Ambulatory Orders Acetaminophen [Tylenol .Regular Strength -] 650 mg PO Q6H PRN tablet 11/23/18 Apixaban [Eliquis -] 5 mg PO BID #70 tablet 11/23/18 Pantoprazole Sodium [Protonix -] 40 mg PO DAILY #30 tablet.ec 11/23/18
[2018-11-23 09:26] VITALS: BP 100/57; PULSE 73; TEMP 98.2
== END 2018-11-23 09:42 | disposition home or self-care (01) | DRG 197 ==
LOC: JER 21:27 → JERBED 11-19 00:40 → J7W 11-19 03:31
PROVIDERS: ADMIT Internal Medicine; ATTEND Family Medicine
DX: I82.412 Acute embolism and thrombosis of left femoral vein (principal); N20.0 Calculus of kidney; K21.9 Gastro-esophageal reflux disease without esophagitis; R93.89 Abnormal findings on diagnostic imaging of other specified body structures; K80.10 Calculus of gallbladder with chronic cholecystitis without obstruction
CPT/HCPCS: 36415; 71046-TC-FY; 74176-TC; 76705-TC; 80048; 80053; 81003; 82272; 84484; 84703; 85025; 85027; 85610; 85730; 93005; 93010; 93971-TC; 99283-25; Q9967

== ENCOUNTER 2020-05-28 18:31 | Emergency (ER) | payer OTHER ==
[2020-05-28 18:38] VITALS: BP 124/80; PULSE 83; TEMP 98.1; BMI 25.0
== END 2020-05-28 20:36 | disposition home or self-care (01) ==
LOC: JER 18:31 → JERFT 18:31
DX: M54.6 Pain in thoracic spine (principal)
CPT/HCPCS: 99282-25

== ENCOUNTER 2020-09-30 22:26 | Emergency (ER) | payer OTHER ==
[2020-09-30 22:42] VITALS: TEMP 98.2; BMI 24.7
[2020-10-01 02:02] VITALS: BP 95/60; PULSE 68
== END 2020-10-01 02:03 | disposition home or self-care (01) ==
LOC: JER 22:26
DX: R23.3 Spontaneous ecchymoses (principal); R22.41 Localized swelling, mass and lump, right lower limb
CPT/HCPCS: 93971-TC; 99284-25

== ENCOUNTER 2021-05-09 17:08 | Emergency (ER) | payer OTHER ==
[2021-05-09 17:22] VITALS: BP 113/73; PULSE 90; TEMP 97.6; BMI 27.4
[2021-05-09 18:51] LABS: EOS % 0.5 % (0-4.5); HEMATOCRIT 40.6 % (32.4-45.2); HEMOGLOBIN 13.8 GM/dL (10.7-15.3); LYMPH % 26.5 % (8-40); MCH 28.7 pg (25.7-33.7); MCHC 34.1 g/dl (32.0-36.0); MEAN CELL VOLUME 84.4 fl (80-96); MEAN PLT VOLUME 9.1 fl (7.5-11.1); MONO % 7.6 % (3.8-10.2); NEUT % 64.4 % (42.8-82.8); PLATELET COUNT 190 10^3/uL (134-434); RBC 4.81 M/mm3 (3.60-5.2); RDW 12.9 % (11.6-15.6)
[2021-05-09 18:59] LABS: INR 1.28 (0.83-1.09); PROTHROMBIN TIME (PATIENT) 14.7 SEC (9.7-13.0)
[2021-05-09 19:14] LABS: CALCIUM 8.3 mg/dL (8.5-10.1)
[2021-05-09 19:15] LABS: ALBUMIN 3.5 g/dl (3.4-5.0); MAGNESIUM 2.1 mg/dL (1.8-2.4)
[2021-05-09 19:18] LABS: CREATININE 0.6 mg/dL (0.55-1.3)
[2021-05-09 19:20] LABS: BILIRUBIN,TOTAL 0.5 mg/dL (0.2-1); TOT PROT 7.2 g/dl (6.4-8.2)
== END 2021-05-09 21:31 | disposition home or self-care (01) ==
LOC: JER 17:08
DX: U07.1 COVID-19 (principal); R00.2 Palpitations
CPT/HCPCS: 36415; 71275-TC; 80053; 83735; 84443; 84484; 84703; 85025; 85610; 93005; 93010; 99284-25; C9803; Q9967; U0003; U0005